=== PATIENT | female | born 1970 | race Caucasian/White ===

== ENCOUNTER 2017-05-21 20:32 | Emergency (ER) | payer OTHER ==
[~2017-05-21] VITALS: Ht 162.6 cm; Wt 95.0 kg
[~2017-05-21 20:32] MED LIST: ATENOLOL (*) 2525 MG PO; asthmanex INH; nasonex; pro air INH
[2017-05-21 20:38] VITALS: BP 161/122; RESP 18; O2SAT 99
--- NOTE | 2017-05-21 21:41 | ED.REPORT ---
HPI-Dyspnea / Wheezing Date of Service May 21, 2017 ED Provider: Jono Orozco MD 46 y/o female with a hx of DM, HTN and asthma presents to the ED complaining of intermittent shortness of breath, onset a month ago. The pt states she brought poppy medina home about a month ago and experienced an allergy reaction. She removed the medina but since then she has been feeling constriction and pressure in her throat, making it difficult for her to breathe through her mouth. She states "during the day and 3-4 times at night, I feel a tickle in my throat and all of a sudden, I stop breathing and I have to take take deep breaths to control it and then I wont be able to breathe again.When laying down , I feel like something is pushing up my throat and closing my airway." Associated sx include right neck swelling that extends up to her right ear and coarse voice. She denies smoking, snoring, wheezing, fever, chest pain and diaphoresis. The pt has not had to use her inhalers in over 3 years but reports she has been prescribed Asthamnex and Pro-air since the current sx began. She had also been prescribed Prednisone for 5 days which did not improve her sx significantly. Nursing Notes Stated Complaint: THROAT CLOSING, SHORT OF BREATH Chief Complaint: ENT & Mouth Nursing Notes Reviewed: Yes Allergies: Coded Allergies: chlorpromazine (Verified Allergy, Severe, 09/18/09) codeine (Verified Allergy, Severe, 04/28/13) morphine (Verified Allergy, Severe, 09/18/09) prochlorperazine (Verified Allergy, Severe, UNKNOWN, 09/18/09) thiethylperazine (Verified Allergy, Severe, UNKNOWN, 09/18/09) Uncoded Allergies: COMPAZINE,THORAZINE,TORCAN,BCP,EES,MS (Allergy, Unknown, 10/27/05) Macrolides (Allergy, Unknown, 10/27/05) PHENOTHIAZINES (Ingr Allergy) (Allergy, Unknown, Y, 10/27/05) Prochlorperazine (Allergy, Unknown, 10/27/05) Scheduled ([asthmanex]) INH PRN ([nasonex]) NA DAILY ([pro air]) INH PRN resque inhaler. Miscellaneous Medications Atenolol-Expunged Drug, Do Not Renew! (Atenolol-Expunged Drug, Do Not Renew!) 25 Mg Tab 25 MG PO General Time Seen by MD: 21:40 Chief Complaint Shortness of breath (intermittent) Hx Obtained From: Patient Arrived By: Walk-in Sudden in Onset?: Yes Onset Occurred: More than a week ago... (1 month) Symptom Duration: Intermittent Severity: Current: No pain currently Severity: Maximum: No pain Recent Healthcare: No recent doctor visit Similar Sx Previous: No Past Medical History Past Medical History Reports: Asthma, Diabetes mellitus, Hypertension Past Surgical History Hysterectomy Knee Hernia Smoking History Never Smoker Social History Other Social History: Good social support, Ambulatory Status Independent Review of Systems Reports: constriction and pressure in the throat, especially on the left side Constitutional: Denies: Fever Respiratory: Reports: Shortness of breath (intermittent), Denies: Wheezing Cardiovascular: Denies: Chest pain Musculoskeletal: Reports: Neck pain (neck swelling) Skin: Denies Diaphoresis Complete sys rev & neg: except as marked. Physical Exam Initial Vital Signs Vital Signs (First) Date Time Temp Pulse Resp B/P Pulse Ox O2 Delivery O2 Flow Rate FiO2 05/21/17 20:38 36.4 81 18 161/122 99 Room Air Initial VS: Reviewed Head / Eyes: Atraumatic, Normocephalic Abdomen / GI: Soft, Non-tender Extremities: Vascular intact, Neuro intact, No swelling, No tenderness Skin: Warm, Dry, No cyanosis Neurologic: Alert, Oriented, Nonfocal General/Constitutional: Awake, Alert, No acute distress, Cooperative Neck: Atraumatic, Supple, Full range of motion, No adenopathy, No masses No thyromegaly Right sided tenderness Phonation normal lies flat wihout dyspnea Respiratory / Chest: Atraumatic, Breath sounds NL, Breath sounds = bilat, No respiratory distress, No rales, No rhonchi, No wheezing Cardiovascular: Heart rate NL, Regular rhythm, Heart sounds NL, No gallop, No murmurs, No rubs ENT: Atraumatic Ulcers with whitish base on the soft pallate. Interpretation & Diagnostics Exam: Neck CT Conclusion: No findings of epiglottis or retropharyngeal abscess identified. No peritonsillar abscess. Soft tissue fullness in the region of the left vallecula , possibly due to retained secretions but direct visualization of this area may be of benefit to exclude a soft tissue mass. Signed by Dr. Miles Meléndez 05/22/17 12:44 Lab Results Interpretation Result Diagram: 05/21/17 2319 05/21/17 2319 Test 05/21/17 23:19 White Blood Count 12.9th/mm3 (3.8-10.1) Red Blood Count 4.69mil/mm3 (3.90-5.20) Hemoglobin 14.1g/dL (12.0-15.6) Hematocrit 41.3% (35.0-46.0) Mean Corpuscular Volume 88.1fL (81-100) Mean Corpuscular Hemoglobin 30.1pg (27.0-35.0) Mean Corpuscular Hemoglobin Concent 34.1% (32.0-37.0) Red Cell Distribution Width 13.1% (12.3-15.4) Platelet Count 359bil/L (150-400) Neutrophils (%) (Auto) 39.7% (40-74) Lymphocytes (%) (Auto) 54.1% (14-46) Monocytes (%) (Auto) 4.2% (4-12) Eosinophils (%) (Auto) 1.2% (0-5) Basophils (%) (Auto) 0.3% (0-3) Sodium Level 139mEq/L (134-144) Potassium Level 3.9mEq/L (3.5-5.2) Chloride Level 98mEq/L (97-108) Carbon Dioxide Level 24mmol/L (18-29) Blood Urea Nitrogen 12mg/dL (6-24) Creatinine 0.65mg/dL (0.57-1.00) Estimat Glomerular Filtration Rate 139mL/min (>59) Glucose Level 153mg/dL (60-99) Calcium Level 10.1mg/dL (8.5-10.1) Total Bilirubin 0.2mg/dL (0.0-1.2) Aspartate Amino Transf (AST/SGOT) 32U/L (0-50) Alanine Aminotransferase (ALT/SGPT) 79U/L (0-32) Alkaline Phosphatase 64U/L (25-150) Total Protein 7.9g/dL (6.4-8.4) Albumin 4.6g/dL (3.4-5.0) Thyroid Stimulating Hormone (TSH) 3.490uIU/mL (0.450-4.500) Hold Desai Top Tube Received (Received) Re-Eval/Medical Decision Med Decision/Clinical Course 46 year old female with intermittent sense of airway obstruction and persistent R sided neck pain/tenderness. Airway appears intact. No airway threat on CT imaging. Noted to be hypertensive on arrival, this resloves on re-check prior to discharge. Will be seen later today by ENT. Re-Evaluation/Progress : Time of Eval: 00:52 Re-Evaluation/Progress Note: Rechecked pt. Discussed lab results, imaging results, diagnosis and plan to discharge. Pt understands and agrees with the plan. F/U instructions and RTER warning given. All questions addressed. Consultation : Referral / Consult Name: Luis Burns MD Consulted With: ENT Call Returned at: 00:54 Senior Pensions Administrator: Will see in office, Agrees with eval, Agrees with plan Counseled Regarding: Diagnosis, Lab results, Need for follow-up, When/why to return to ED Discharge & Departure Impression: Primary Impression: Choking in adult Disposition: Home Discharge Condition All VS Reviewed: Yes Condition: Stable Additional Instructions: Emergency department evaluation today included review, examination, labs and CT of the neck. There does not appear to be any immediately concerning condition present. Case was discussed with Dr.Gary Burns, an ear nose and throat doctor. He would like to see later today. Call the office at 8 AM. Thanks for trusting us with your care tonight Referrals: Luis Burns MD Scribe Attestation Portions of this note were transcribed by Sha El. I, , personally performed the history, physical exam and medical decision- making;I reviewed and confirmed the accuracy of the information in the transcribed note. Signed by Shreya Torres. 05/22/17 01:11 copies to: Annie Baldwin MD; Luis Burns MD, Donald L MD May 21, 2017 21:41 Sha El May 21, 2017 23:15
[2017-05-21 22:57] VITALS: BP 143/84; PULSE 82; RESP 18; O2SAT 99
[2017-05-21] MEDS ORDERED: 0.9% Sodium Chloride 1,000 ML IV ONE (23:10)
[2017-05-21 23:27] LABS: BASOPHILS % (AUTO) 0.3 % (0-3); EOSINOPHILS % (AUTO) 1.2 % (0-5); MONOCYTES % (AUTO) 4.2 % (4-12); Mean Corpuscular Hemoglobin 30.1 pg (27.0-35.0); Mean Corpuscular Volume 88.1 fL (81-100); NEUTROPHILS % (AUTO) 39.7 % (40-74); Platelet Count 359 bil/L (150-400)
[2017-05-22 01:22] VITALS: BP 127/81; PULSE 71; RESP 14; O2SAT 98
--- NOTE | 2017-05-22 08:16 | DRSVH ---
PROCEDURE: CT NECK SOFT TISSUES WITH CONTRAST ([id number]) INDICATIONS: neck pain, difficulty breathing TECHNIQUE: After the administration of intravenous contrast, 3.0 mm axial sections acquired from the sella to th e aortic arch. Additional oblique axial 3.0 mm sections acquired through the pharynx. 3 mm thick co lizeth reformats were generated. For radiation dose reduction, the following was used: automated exp osure control. COMPARISON: [facility], CT, NECK SOFT TIS. W/CONTRAST, 04/28/2013, 15:37. FINDINGS: Image quality: Excellent. Lymph nodes: No enlarged lymph nodes seen throughout the neck. Vessels: Visualized vasculature appears patent. Neck spaces: The oropharynx, nasopharynx, and pharynx demonstrate no mucosal lesions. The vocal cor ds, false vocal cords, pyriform sinuses, epiglottis, and tongue base all appear normal. There is a ma ss or retained secretions in the left vallecula (se 2 im 31) measuring 2.1 x 1.4 x 1.8 CM Extramucos al spaces appear unremarkable. Prominent but not pathologically enlarged cervical lymph nodes bilate rally. Glands: The parotid and submandibular glands appear normal. Thyroid gland grossly normal.. Miscellaneous: Visualized brain and orbits appear normal. Lung apices appear clear. Superficial so ft tissues appear normal. Bones: No suspicious bony lesions. Visualized sinuses and mastoids appear unremarkable. IMPRESSION: 1. No drainable fluid collections or abscess. 2. Soft tissue mass in the left vallecula. Although this finding is similar to the 2013 study recomme nd direct visualization for further evaluation. 3. There are no discrepancies with the preliminary report. Dictated by: Jose Roberto Almonte M.D. on 05/22/2017 at 8:07 Approved by: Jose Roberto Almonte M.D. on 05/22/2017 at 8:14
== END 2017-05-22 01:22 | disposition home or self-care (01) ==
LOC: SED 20:32
DX: R09.89 Other specified symptoms and signs involving the circulatory and respiratory systems (principal); R22.1 Localized swelling, mass and lump, neck; Z88.5 Allergy status to narcotic agent; Z88.8 Allergy status to other drugs, medicaments and biological substances; M54.2 Cervicalgia; J45.909 Unspecified asthma, uncomplicated; I10 Essential (primary) hypertension; E11.9 Type 2 diabetes mellitus without complications
CPT/HCPCS: 36415; 70491; 80053; 82948; 84443; 85025; 96360; 99284; J7030; Q9967

== ENCOUNTER 2017-06-24 06:40 | Inpatient (IN) | payer OTHER ==
[~2017-06-24] VITALS: Ht 162.6 cm; Wt 90.9 kg
[2017-06-24] VITALS (9 sets, daily range): BP systolic 110–181; BP diastolic 65–136; PULSE 74–147; RESP 15–21; O2SAT 96–100
--- NOTE | 2017-06-24 06:39 | ED.REPORT ---
HPI-GI Bleed Date of Service Jun 24, 2017 ED Provider: Ted Perry MD A 46 year old female with a history of hypertension and diabetes is brought to the ED via EMS due to hemoptysis. The pt had a tongue base I partial glossectomy on 06/15/2017 at [facility] with a 3 cm x 3 cm area removed ( benign). She woke this morning to blood in her airway and immediately began coughing and vomiting blood. Per medics, she continued to cough and vomit blood consistently en route. No other symptoms are reported at this time. The pt's states that she ate toast last night but has not experienced any other complications. Nursing Notes Stated Complaint: VOMITING BLOOD Nursing Notes Reviewed: Yes Allergies: Coded Allergies: chlorpromazine (Verified Allergy, Severe, 06/24/17) codeine (Verified Allergy, Severe, 06/24/17) morphine (Verified Allergy, Severe, 06/24/17) prochlorperazine (Verified Allergy, Severe, 06/24/17) thiethylperazine (Verified Allergy, Severe, 06/24/17) Phenothiazines (Verified Allergy, Unknown, 06/24/17) Uncoded Allergies: COMPAZINE,THORAZINE,TORCAN,BCP,EES,MS (Allergy, Unknown, 10/27/05) Macrolides (Allergy, Unknown, 10/27/05) Scheduled ([asthmanex]) INH PRN ([nasonex]) NA DAILY ([pro air]) INH PRN resque inhaler. Miscellaneous Medications Atenolol-Expunged Drug, Do Not Renew! (Atenolol-Expunged Drug, Do Not Renew!) 25 Mg Tab 25 MG PO General Time Seen by Provider: 06:41 Chief Complaint Chief Complaint: Other (hemoptysis) Hx Obtained From: Patient, EMS Arrived By: Ambulance Onset Occurred: 16 - 30 minutes ago Symptom Duration: Since onset Recent Healthcare: Recent doctor visit, Recent hospitalization Similar Sx Previous: No Past Medical History Past Medical History Reports: Asthma, Diabetes mellitus, Hypertension Past Surgical History Hysterectomy Knee Hernia tongue base I partial glossectomy, 3 cm x 3 cm area removed (benign) 06/15/2017 Smoking History Never Smoker Social History Other Social History: Good social support, Ambulatory Status Independent Review of Systems Respiratory: Reports: Hemoptysis, Denies: Shortness of breath Cardiovascular: Denies: Chest pain GI: Reports: Hematemesis, Denies: Abdominal pain Skin: Denies Rash Complete sys rev & neg: except as marked. Physical Exam Initial Vital Signs Vital Signs (First) Date Time Temp Pulse Resp B/P Pulse Ox O2 Delivery O2 Flow Rate FiO2 06/24/17 06:40 36.4 152 18 158/112 97 Room Air Initial VS: Reviewed General/Constitutional: Awake, Alert sitting up and spitting blood regularly able to speak without hoarseness, but unable to converse normally due to frequency of coughing blood Respiratory / Chest: Breath sounds NL, Breath sounds = bilat no overt respiratory distress Cardiovascular: Regular rhythm, Heart sounds NL Heart Rate / Rhythm: Positive: Tachycardia Abdomen: Atraumatic, Soft, Non-tender Head / Eyes: Normocephalic, PERRL, EOMI ENT: Airway patent, Mucous membranes moist Skin Skin: Atraumatic, Color NL, No rash, Warm, Dry Neurologic: Oriented X3, Speech NL, No motor deficits, No sensory deficits Neck: Supple, Full range of motion Back: Atraumatic, Full range of motion Upper Extremity / MS: Atraumatic, Full range of motion Lower Extremity / Pelvis / MS: Atraumatic, Full range of motion Psychiatric: Affect NL, Mood NL Interpretation & Diagnostics Lab Results Interpretation Result Diagram: 06/24/17 0728 06/24/17 0645 Test 06/24/17 06:45 06/24/17 07:28 White Blood Count 10.1th/mm3 (3.8-10.1) Red Blood Count 4.51mil/mm3 (3.90-5.20) Mean Corpuscular Volume 88.2fL (81-100) Mean Corpuscular Hemoglobin 29.7pg (27.0-35.0) Mean Corpuscular Hemoglobin Concent 33.7% (32.0-37.0) Red Cell Distribution Width 13.6% (12.3-15.4) Platelet Count 398bil/L (150-400) Neutrophils (%) (Auto) 39.3% (40-74) Lymphocytes (%) (Auto) 51.3% (14-46) Monocytes (%) (Auto) 7.1% (4-12) Eosinophils (%) (Auto) 1.5% (0-5) Basophils (%) (Auto) 0.5% (0-3) Prothrombin Time 9.4sec (8.1-12.5) Prothromb Time International Ratio 0.88ratio Sodium Level 142mEq/L (134-144) Potassium Level 3.7mEq/L (3.5-5.2) Chloride Level 100mEq/L (97-108) Carbon Dioxide Level 18mmol/L (18-29) Blood Urea Nitrogen 7mg/dL (6-24) Creatinine 0.69mg/dL (0.57-1.00) Estimat Glomerular Filtration Rate 130mL/min (>59) Glucose Level 192mg/dL (60-99) Calcium Level 10.5mg/dL (8.5-10.1) Magnesium Level 1.7mg/dL (1.6-2.6) Total Bilirubin 0.3mg/dL (0.0-1.2) Aspartate Amino Transf (AST/SGOT) 43U/L (0-50) Alanine Aminotransferase (ALT/SGPT) 91U/L (0-32) Alkaline Phosphatase 92U/L (25-150) Troponin T < 0.010ug/L (0.0-0.011) Total Protein 7.9g/dL (6.4-8.4) Albumin 4.4g/dL (3.4-5.0) Triglycerides Level 267mg/dL (0-149) Hemoglobin 11.3g/dL (12.0-15.6) Hematocrit 33.3% (35.0-46.0) Lab Results Interpretation: Hematocrit #1 normal Hematocrit #2 decreasing CMP normal ECG Interpretation ECG Interpretation: sinus tachycardia with a rate of 154, wide complex rhythm LBBB no previous for comparison Time: 06:52 Interpreted by: ED physician Re-Eval/Medical Decision Med Decision/Clinical Course This is a 46-year-old female who started coughing up blood. Initially the report was a possible GI bleed, so that template was used-but it turns out the patient just had a biopsy of a lingular tonsillar mass done at [facility] a few days ago. She was due to have a follow-up visit today for results of the biopsy, when she started coughing/spitting up blood the back of the mouth. This steadily worsened. And EMS was called. She was actively bleeding, was able to sit up, converse without hoarseness, and although extremely anxious and tachycardic. On arrival the patient is tachycardic and is repeatedly spitting up blood. However she is still protecting her airway in the upright position. She is not short of breath. She is not hypotensive. She reports that the biopsy and removal tissue was done at the lingual tonsillar area, I cannot actually visualize on inspection the actual source of bleeding it is posterior. However again she has no hoarseness. She has no stridor. IVs were placed. Given the ongoing bleeding, and possible need for transfusion she was typed and crossed, and transient panic acid was initiated. Dictated records [facility] and talk with the surgeon there, who indicates that the pathology was negative for malignancy. Additionally, ENT was consulted as the patient arrived given the need for possible or management. Given the persistent bleeding, ENT was consulted and Luis Ames came and has taken the patient to the OR for management. Her EKG suggests a underlying left bundle branch block, but there is no prior EKG available in the EMR here, and I contacted [facility] indicate they have no prior EKG as well. The patient is no chest pain shortness breath over cardiac symptoms-the presentation is entirely consistent with ongoing postsurgical hemorrhage. Patient is continuing to have slow steady amounts of blood that she spits up, and is being taken to the or for further management. Initial hematocrit is normal. Serial hematocrits have been obtained and blood is available and may be required. Source of Hx: Old records Re-Evaluation/Progress #1: Time of Eval: 07:09 Patient Status: Condition improved Re-Evaluation/Progress Note: Pt rechecked, who is stable. The diagnosis and plan for admission are discussed. The pt understands and agrees with the plan. All questions are addressed at this time. Re-Evaluation/Progress #2: Time of Eval: 07:30 Re-Evaluation/Progress Note: Pt rechecked and plan for surgery is further discussed. Consultation #1: Referral / Consult Name: Luis Ames MD Consulted With: ENT Call Returned at: 06:51 Speech Pathology Teacher: Agrees with eval, Agrees with plan, Accepts admit Note: Consulted with Dr. Ames, ENT, regarding pt's case. Dr. Ames agrees with the evaluation and plan. He agrees to admit the pt for surgery. Consultation #2: Call Returned at: 07:01 Note: Spoke with [facility] regarding pt's case. Pt's history is reviewed. Consultation #3: Referral / Consult Name: Luis Ames MD Consulted With: ENT Call Returned at: 07:12 Speech Pathology Teacher: Agrees with eval, Agrees with plan Note: Spoke with Dr. Ames to update him on pt history and plan. Counseled Regarding: Diagnosis, Lab results, Need for admission Discharge & Departure Impression: Primary Impression: Post-tonsillectomy hemorrhage Additional Impression: LBBB (left bundle branch block) Disposition: ADMITTED TO HOSPITAL Discharge Condition All VS Reviewed: Yes Condition: Stable Referrals: Annie Baldwin MD (PCP) Crit Care Except Billable Proc Time Spent: 30-74 minutes Services Performed: Patient management by me, Time spent at bedside, Reviewing test results, Reviewing imaging, Discussing patient care, Documentation in record, Time with fam/surrogate Scribe Attestation Portions of this note were transcribed by Alexy Yu. I, Dr. Perry personally performed the history, physical exam and medical decision-making; I reviewed and confirmed the accuracy of the information in the transcribed note. copies to: Annie Baldwin MD, Matthew F MD Jun 24, 2017 06:39 ALEXY YU Jun 24, 2017 06:49
[~2017-06-24 06:40] MED LIST changes: +Pantoprazole 4 mg/mL 10 mL Inj IVPUSH ONE; +Pantoprazole Inj 80 MG, Pharmacy To Mix 1 EA in 0.9% Sodium Chloride 80 ML IV ONE
[2017-06-24] MEDS ORDERED: Tranexamic Acid Inj 1,000 MG in 0.9% Sodium Chloride 100 ML IV ONE (06:50)
[2017-06-24] MEDS ORDERED: TRANEXAMIC ACID IV ONE (06:50)
[2017-06-24] MEDS ORDERED: SODIUM CHLORIDE 0.9% IV ONE (06:50)
[2017-06-24 07:01] LABS: BASOPHILS % (AUTO) 0.5 % (0-3); EOSINOPHILS % (AUTO) 1.5 % (0-5); MONOCYTES % (AUTO) 7.1 % (4-12); Mean Corpuscular Hemoglobin 29.7 pg (27.0-35.0); Mean Corpuscular Volume 88.2 fL (81-100); NEUTROPHILS % (AUTO) 39.3 % (40-74); Platelet Count 398 bil/L (150-400)
[2017-06-24 07:32] LABS: INR 0.88 ratio
[2017-06-24] MEDS ORDERED: Lactated Ringer's 1,000 ML IV ONE (08:16)
[2017-06-24 08:43] LABS: TROPONIN T < 0.010 ug/L (0.0-0.011)
[2017-06-24] MEDS ORDERED: Insulin Human REGular Inj 100 UNIT in 0.9% Sodium Chloride-Pha MIX 100 ML IV SCH (08:52)
[2017-06-24] MEDS ORDERED: Lactated Ringer's 1,000 ML IV SCH ×2 (08:52→09:36)
[2017-06-24] MEDS: Propofol Inj 1,000,000 MCG in IV Premix 1 EACH IV SCH ×2 (08:52→12:46)
[2017-06-24] MEDS ORDERED: fentaNYL-PF 50 mCg/mL 2 mL Inj IVPUSH PRN (08:55)
[2017-06-24] MEDS ORDERED: Senna-Docusate 8.6-50 mg Tablet PO PRN (08:55)
[2017-06-24] MEDS ORDERED: Ondansetron 2 mg/mL 2 mL Inj IVPUSH PRN ×2 (08:55→09:40)
[2017-06-24] MEDS ORDERED: Alum-Mag Hydrox-Simeth 30 mL Suspension PO PRN (08:55)
[2017-06-24] MEDS ORDERED: Polyethylene Glycol (PEG) 17 Gm Powder PO PRN (08:55)
[2017-06-24] MEDS ORDERED: Propofol 10,000 mCg/mL 100 mL Inj ONE (09:25)
[2017-06-24] MEDS ORDERED: Lactated Ringer's 500 ML IV PRN (09:36)
[2017-06-24] MEDS ORDERED: Phenylephrine 10,000 mCg/mL Inj IVPUSH PRN (09:40)
[2017-06-24] MEDS ORDERED: EPHEDrine Sulfate 50 mg/mL Inj IVPUSH PRN (09:40)
[2017-06-24] MEDS ORDERED: Atropine 0.4 mg/mL Inj IVPUSH PRN (09:40)
--- NOTE | 2017-06-24 09:40 | PCM.HPANE ---
Patient Data Surgeon Admitting Provider: Attending Provider:Luis Ames MD Primary Care Physician:Annie Baldwin MD Other Provider:Cari Lagunaingham Anesthesia Reason for Visit Vomiting Blood Ht/WT & BMI Height (Feet): 5 Height (Inches): 4 Weight (Kilograms): 90.91 Body Mass Index Allergies Coded Allergies: chlorpromazine (Verified Allergy, Severe, 06/24/17) codeine (Verified Allergy, Severe, 06/24/17) morphine (Verified Allergy, Severe, 06/24/17) prochlorperazine (Verified Allergy, Severe, 06/24/17) thiethylperazine (Verified Allergy, Severe, 06/24/17) Phenothiazines (Verified Allergy, Unknown, 06/24/17) Uncoded Allergies: COMPAZINE,THORAZINE,TORCAN,BCP,EES,MS (Allergy, Unknown, 10/27/05) Macrolides (Allergy, Unknown, 10/27/05) Past Anesthesia History Anesthesia History: Denies:: Abnormal Airway, Anesthesia Reactions, Difficult Intubation, Fam Anesthesia Reaction, Fam Malignant Hypertherm, Malignant Hyperthermia Diabetes History Hx Diabetes?: Yes (Bedside glucose 161 today) Medications Reported Medications Atenolol-Expunged Drug, Do Not Renew! 25 Mg Tab25 Mg PO 04/28/13 [pro air] No Conflict Check INH PRN Ref 0 resque inhaler. 01/24/09 [nasonex] No Conflict Check NA DAILY Ref 0 01/24/09 [asthmanex] No Conflict Check INH PRN Ref 0 01/24/09 History History of ENT Problems?: Yes (s/p ENT surgery) HEENT History: Denies:: Abnormal Airway Cataracts Difficult Intubation Dysphagia Glaucoma Hearing Problem Sinus Problem TMJ Denture Type: None Teeth Condition: Within Normal Limits Hx of Heart Problems?: No Cardiovascular History: Positive for:: Hypertension Denies:: AICD Abdominal Aortic Aneurism Atrial Fibrillation Cardiac Surgery Chest Pain Congestive Heart Failure Coronary Artery Disease Edema Heart Murmur Irregular Heartbeat Pacemaker Peripheral Vascular Rheumatic Fever Thrombophlebitis Valvular Heart Disease Hx of Respiratory Problem?: No Respiratory History: Positive for:: Asthma Denies:: COPD Chest Surgery Cough Dyspnea Emphysema Hemoptysis Oxygen Administration Pneumonia Pulmonary Embolism Tuberculosis Use of C-PAP Machine Use of Inhalers / NEBS Hx Neurologic Problems?: No Neurological History: Denies:: Alzheimer's Disease CVA Dementia Dizziness Headaches Multiple Sclerosis Parkinson's Disease Peripheral Neuropathy Seizures TIA Hx of GI Problems?: No Gastrointestinal History: Denies:: Cirrhosis Diverticulitis Gall Bladder Disease Gastroesphageal Reflux Gastrointestinal Bleeding Heartburn Hepatitis Hiatal Hernia Liver Disease Rectal Bleeding Hx of Problems?: No Genitourinary History: Denies:: HX of Hemodialysis Kidney Stones Urinary Tract Infection HX of Peritoneal Dialysis: No Female Hx: Denies:: Currently Endometriosis Pelvic Inflammatory Problems with Breasts? Skin History: Denies:: History Skin Disorders? Pressure Ulcers Hx Musculoskeletal Problems?: No Musculoskeletal History: Denies:: Back Injury Degenerative Joint Fibromyalgia Joint Replacement Musculoskeletal Trauma Myasthenia Gravis Osteoarthritis Rheumatoid Arthritis Systemic Lupus Hx of Psycho/Social Problems?: No Psycho Social History: Denies:: Anxiety Bipolar Disorder Hx Depression Suicide Attempt Hx Surgeries?: Yes (HYSTERECTOMY, KNEE, HERNIA) Other History: Denies:: Cancer Endocrine Disease Hospitalization Thyroid Disease History Blood Transfusions: Positive for:: Accept Blood Products? Denies:: Blood Transfuse Reaction Blood Transfusions Hx Diabetes: Yes (Bedside glucose 161 today) Hx Alcohol Use: NoHx Substance Use: No Smoking Status: Never Smoker Have You Smoked inLast 12 mo: No Stop/Bang Risk Assessment Category Category 1A: Patient has history of documented sleep apnea, and HAS NOT received any narcotic, sedative or anesthesia administration during this stay. Category 1B: Patient has history of documented sleep apnea, and HAS received any narcotic , sedative or anesthesia administration during this stay Category 2: Patient has SUSPECTED Obstructive Sleep Apnea, and HAS received any narcotic , sedative or anesthesia administration during this stay. Category 3: Patient has SUSPECTED Obstructive Sleep Apnea and HAS NOT received narcotic, sedative or anesthesia administration during this stay. Category 4: Outpatient in Procedural Areas with known sleep apnea or who screen positive for High Risk via the STOP/BANG questionnaire. Exam Exam Vital Signs Vital Signs Date Time Temp Pulse Resp B/P Pulse Ox O2 Delivery O2 Flow Rate FiO2 06/24/17 07:18 136 21 155/117 97 Room Air 06/24/17 07:00 147 21 181/136 97 Room Air 06/24/17 06:40 36.4 152 18 158/112 97 Room Air General Appearance: Alert, Oriented X3, Cooperative, Severe Distress ( significant post tonsillectomy hemorrhage) HEENT/AIRWAY: MP 2, Neck Movement (FROM), Mouth Opening (3 FBMO) Lungs: Clear to Auscultation, Normal Air Movement Heart: Regular Rate/Rhythm, No Murmurs/Rubs/Gallops, Other (possible ST elevation on ED 3 lead merchandising consultant, will address after bleeding is controlled) Meds/Labs/Diagnostics Admission Meds Current Medications Pantoprazole 80 mg 80 mg STAT ONCE IVPUSH Last administered on 06/24/17 06:45 ; Start 06/24/17 at 06:40; Stop 06/24/17 at 06:41; Status DC Pantoprazole 80 mg/Miscellaneous 1 ea/Sodium Chloride 100 ml @ 10 mls/hr ONCE ONCE IV Last administered on 06/24/17 07:18; Start 06/24/17 at 06:40; Stop at 16:39 Tranexamic Acid/ Sodium Chloride (Cyklokapron Inj/ Normal Saline) 110 ml @ 600 mls/hr ONCE ONCE IV Last administered on 06/24/17 06:58; Start 06/24/17 at 06: 50; Stop 06/24/17 at 07:00; Status DC Labs Test 06/24/17 06:45 06/24/17 07:28 White Blood Count 10.1th/mm3 (3.8-10.1) Red Blood Count 4.51mil/mm3 (3.90-5.20) Mean Corpuscular Volume 88.2fL (81-100) Mean Corpuscular Hemoglobin 29.7pg (27.0-35.0) Mean Corpuscular Hemoglobin Concent 33.7% (32.0-37.0) Red Cell Distribution Width 13.6% (12.3-15.4) Platelet Count 398bil/L (150-400) Neutrophils (%) (Auto) 39.3% (40-74) Lymphocytes (%) (Auto) 51.3% (14-46) Monocytes (%) (Auto) 7.1% (4-12) Eosinophils (%) (Auto) 1.5% (0-5) Basophils (%) (Auto) 0.5% (0-3) Plan Impression Patient chart reviewed, patient interviewed and anesthestic plan with risks, benefits, and alternatives discussed, and informed consent obtained. NPO per Anesth. Guidelines: Yes ASA Physical Status: ASA4 Plus Emergency Anesthetic Plan: GA Bene/Risks/Altern/Consents: Yes HP Complete Prior to Induction: Yes Other Discussed risk of possible postoperative intubation secondary to severe bleed, as well as aspiration of blood. Leodan Wills MD Jun 24, 2017 07:51
--- NOTE | 2017-06-24 09:41 | PCM.ANEP1 ---
Post Anesthesia PACU Phase 1 Assessment Vital Signs Vital Signs Date Time Temp Pulse Resp B/P Pulse Ox O2 Delivery O2 Flow Rate FiO2 06/24/17 07:40 95 15 110/66 97 Room Air 06/24/17 07:30 135 16 152/92 96 Room Air 06/24/17 07:18 136 21 155/117 97 Room Air 06/24/17 07:00 147 21 181/136 97 Room Air 06/24/17 06:40 36.4 152 18 158/112 97 Room Air Anesthetic Administered: GA Level of Alertness: Drowsy, not talking (sedated on a ventilator) MEDEIROS's with Equal Strength: Yes Pain: No Nausea or Vomiting: No CV Function & Hydration Stable: Yes (addressed possible ST elevation with ICU physician Dr. David Ellis and ordered 12 Lead EKG. He will follow up.) Airway Device: Endotrachial Tube Lungs: Clear to Auscultation, Normal Air Movement Dermatome Level: Full Sensation (difficult to assess as intubated and sedated) PACU Phase 2 Assessment Complications: Yes (will remain intubated for transfer to [facility]) Follow up Care: Yes (ICU) Patient Instructions Provided: N/A Leodan Wills MD Jun 24, 2017 09:41
[2017-06-24] MEDS ORDERED: fentaNYL 2,500 mCg/250 mL IV Premix IV SCH (09:55)
--- NOTE | 2017-06-24 11:33 | ABG ---
DateTimeAnalyzed 11:21:00 -_ pH ____7.454 - 7.350 7.450 pCO2 ___25.4__ -mmHg 35.0 45.0 pO2 187 -mmHg 69.0 116 HCO3- ___17.6__ -mmol/L 22.0 26.0 ABE ___-4.8__ -mmol/L -2.0 2.0 tHb ___10.8__ -g/dL O2Hb ___97.7__ -% COHb ____0.8__ -% MetHb ____0.9__ -% sO2 ___99.4__ -% FIO2 ___50.0__ -% PRVC 20 - PEEP ____5.0__ -cmH2O Vt __440.0__ -L Drawn By gj - Date/Time Notified____ 11:33:00 -_ Spontaneous_RR ___20.0__ -b/min Oxygen Device 1 VENTILATOR - Notified By gj - Notified Whom ___DR. GARRIDO - B 759 -mmHg tO2 ___15.3__ -Vol% Clem test N/A -
--- NOTE | 2017-06-24 11:46 | PCM.DC.MED ---
Discharge Summary Date of Service Jun 24, 2017 Dates of Hospitalization Date of Hospital Admission Jun 24, 2017 at 08:56 Date of Discharge: Jun 24, 2017 Providers: Admitting Physician: Luis Ames MD Primary Care Physician: Annie Baldwin MD Attending Physician: Luis Ames MD Diagnosis at Time of Discharge Diagnosis at Time of Discharge Acute blood loss anemia Postoperative hypoglossal hemorrhage Hypertension Diabetes mellitus type II Consultations Luis Ames, ENT Procedures XRay, CTs & MRIs Chest x-ray NAD Brief History 46-year-old woman with two-month history of dyspnea found to have tonsillar mass biopsied then resected at [facility] approximately 3 days prior to admission in the care of Dr. Keenan Palacios. She experienced new onset left-sided neck pain 1 day prior to admission. On the morning admission she awakened early in the morning with profuse hemorrhage. She was taken to the operating room at [facility] urgently by Dr. Luis Ames. Details per operative note. She received 2 units RBC transfusion, as well as substantial crystalloid. Patient then transferred to intensive care unit, intubated and sedated with propofol and fentanyl. Post intubation chest x-ray with good tube placement. Blood pressure systolic in 190s now stable approximately 150-160. Posttransfusion Hemoglobin pending at time of transfer Exam Vital Signs (Last) Date Time Temp Pulse Resp B/P Pulse Ox O2 Delivery O2 Flow Rate FiO2 06/24/17 09:58 86 125/67 100 50 06/24/17 09:20 Ventilator 06/24/17 09:15 36.6 20 Exam General: Obese woman intubated sedated with oral gauze pack HEENT: sclerae anicteric Chest: clear to auscultation Cardiac: S1S2, regular, no murmur Abdomen: BS normal, not rigid Extremities: No pitting edema Neuro: Minimally alert, cranial nerves symmetric, her movements are nonfocal Test 06/24/17 06:45 06/24/17 07:28 White Blood Count 10.1th/mm3 (3.8-10.1) Red Blood Count 4.51mil/mm3 (3.90-5.20) Mean Corpuscular Volume 88.2fL (81-100) Mean Corpuscular Hemoglobin 29.7pg (27.0-35.0) Mean Corpuscular Hemoglobin Concent 33.7% (32.0-37.0) Red Cell Distribution Width 13.6% (12.3-15.4) Platelet Count 398bil/L (150-400) Neutrophils (%) (Auto) 39.3% (40-74) Lymphocytes (%) (Auto) 51.3% (14-46) Monocytes (%) (Auto) 7.1% (4-12) Eosinophils (%) (Auto) 1.5% (0-5) Basophils (%) (Auto) 0.5% (0-3) Prothrombin Time 9.4sec (8.1-12.5) Prothromb Time International Ratio 0.88ratio Sodium Level 142mEq/L (134-144) Potassium Level 3.7mEq/L (3.5-5.2) Chloride Level 100mEq/L (97-108) Carbon Dioxide Level 18mmol/L (18-29) Blood Urea Nitrogen 7mg/dL (6-24) Creatinine 0.69mg/dL (0.57-1.00) Estimat Glomerular Filtration Rate 130mL/min (>59) Glucose Level 192mg/dL (60-99) Calcium Level 10.5mg/dL (8.5-10.1) Magnesium Level 1.7mg/dL (1.6-2.6) Total Bilirubin 0.3mg/dL (0.0-1.2) Aspartate Amino Transf (AST/SGOT) 43U/L (0-50) Alanine Aminotransferase (ALT/SGPT) 91U/L (0-32) Alkaline Phosphatase 92U/L (25-150) Troponin T < 0.010ug/L (0.0-0.011) Total Protein 7.9g/dL (6.4-8.4) Albumin 4.4g/dL (3.4-5.0) Triglycerides Level 267mg/dL (0-149) Hemoglobin 11.3g/dL (12.0-15.6) Hematocrit 33.3% (35.0-46.0) Discharge Medications Discharge Medications ([asthmanex]) INH PRN (Reported) ([nasonex]) NA DAILY (Reported) ([pro air]) INH PRN (Reported) resque inhaler. Miscellaneous Medications Atenolol-Expunged Drug, Do Not Renew! (Atenolol-Expunged Drug, Do Not Renew!) 25 Mg Tab 25 MG PO (Reported) Followup Plan Disposition: Transfer center at [facility] was contacted and indicated that Dr. Connell communication was completed and they were ready to accept the patient. ACLS transfer to [facility], Dr. Martín Leavitt attending hogshead roller. Time spent 45 minutes Roe Ellis MD Jun 24, 2017 11:46
--- NOTE | 2017-06-24 12:23 | DRSVH ---
PROCEDURE: X-RAY CHEST ONE VIEW, PORTABLE ([id number]) INDICATIONS: tube placement TECHNIQUE: One view of the chest was acquired. COMPARISON: None. FINDINGS: Surgical changes and devices: ETT tip projected 2.2 cm of the kenny. Lungs and pleura: No pleural effusions or pneumothorax. Lungs are clear, aside from mild bibasilar presumed atelectasis given the low lung volumes. Mediastinum: Mediastinal contours appear normal. Heart size is normal. Bones and chest wall: No suspicious bony lesions. Overlying soft tissues appear unremarkable. IMPRESSION: Placement of ETT otherwise bibasilar opacities present likely atelectasis. Correlate cli nically. Dictated by: David JARAMILLO Interpreted: Eleazar Thorpe MD on 06/24/2017 at 10:27 Approved by: Keenan Thorpe M.D. on 06/24/2017 at 12:21
[2017-06-24] MEDS ORDERED: Chlorhexidine 0.12% 15 mL Oral Solution MT SCH (12:30)
--- NOTE | 2017-06-24 13:29 | OP ---
[address] [address] OPERATIVE REPORT PATIENT: TITUS DIEHL : 1970 MR#: [id number] ADMIT: 06/24/2017 JOB ID: [id number] DATE OF SURGERY: 06/24/2017 SURGEON: Luis Ames MD PREOPERATIVE DIAGNOSIS(ES): POSTOPERATIVE DIAGNOSIS(ES): INDICATION FOR PROCEDURE: The patient is a 46-year-old female who underwent a partial posterior tongue resection approximately seven days ago at [facility]. She presents to the emergency department this morning, coughing and spitting up blood. When I saw her in the emergency department she was breathing well, able to express herself normally, and other than intermittently coughing and spitting up blood was not experiencing significant pain complaining of other problems. Cursory exam showed bright red blood coming from her oropharynx. The decision was made to bring her to the operating room for intubation and exploration. DESCRIPTION OF PROCEDURE: After discussing the case with she and her , she was brought to the operating room. General anesthetic was administered by means of an oral endotracheal tube. The tongue was grasped and pulled anteriorly. The oropharynx was filled with bright red blood. This was suctioned. The bleeding was profusely coming from the left base of tongue. Utilizing suction cautery, as it was difficult to reach that area with suture, I was able to explore the base of tongue and gain control with suction. The patient tolerated the procedure well. The decision was made to pack her pharynx with gauze. Discussion ensued to possibly transfer her to [facility] where they can continue to follow her and she was accepted in transfer.
[2017-06-24] MEDS ORDERED: Rocuronium 10 mg/mL 5 mL Inj ONE (13:39)
[2017-06-24] MEDS ORDERED: Dexamethasone 4 mg/mL Inj ONE (13:39)
[2017-06-24] MEDS ORDERED: fentaNYL-PF 50 mCg/mL 2 mL Inj ONE (13:39)
[2017-06-24] MEDS ORDERED: Propofol 10,000 mCg/mL 20 mL Inj ONE (13:39)
--- NOTE | 2017-06-24 14:48 | NUR ---
spiritual care: iam Visited with pt who is known to this asset administrator. Offered support to pt and family. Prayed with them before pt was transferred. Offered a blessing.
--- NOTE | 2017-06-24 14:48 | NUR ---
Admit to CCU/transfer out Patient arrived from OR after 0900 today. Patient was intubated and non -responding to stimulation. SHOT POLISHER and attending Anesthesiologist were at the bedside at the time. Patient received a paralytic agent prior to arriving from OR per Anesthesiologist statement. Oral packing was visible but no bleeding was noted. Patient had some oral secretions seeping through saturated oral packing but only light serum-sanguineous in color- attending oral surgeon was aware. Heart rate on arriving to CCU was SR/ST with wide QRS complex- 12 lead EKG confirm the rhythm- MD aware. Portable chest X-ray was ordered to confirm ET tube placement. No oral care was completed/provided other than cleaning patients lips due to packing placed in OR - MD aware. After about 40 min patient started to wake up and was able to respond appropriately to yes/no questions. Patient indicated having some discomfort and anxiety at the time she was placed on Propofol and Fentanyl drips. Patient became hypertensive with SBP 160-170S and MAP [id number] with MD and treated anxiety/pain with increasing in pain/sedation IV medications- patient was able to relax and hypertension gradually resolved- please refer to CCU flow sheet for vitals and drip titration. Patient was started on IV insulin drip for elevated blood glucose- please see CCU low sheet. Patient was transferred today to [facility] place of her original oral surgery-. Patient was stable at the time of transfer. Report was called to receiving hospital RN prior to transfer. Patient left at 1345 today.
--- NOTE | 2017-06-24 19:19 | PCM.HPMED ---
Subjective Date of Service Jun 24, 2017 Primary Provider: Admitting Physician: Luis Ames MD Primary Care Physician: Annie Baldwin MD Attending Physician: Luis Ames MD Admit Status: Direct Admit, Admit to Yellow Team Chief Complaint: 46-year-old woman with recent resection of a lingual mass presents with acute recurrent postoperative bleeding. History of Present Illness: The patient is intubated and sedated. History is available through her who is at bedside. The patient has a 2 month history of dyspnea, worse at bedtime leading to fear of falling asleep. She was subsequently found to have tonsillar mass, biopsied then resected at [facility] approximately 3 days prior to admission in the care of Dr. Keenan Palacios. She experienced new onset left-sided neck pain 1 day prior to admission. On the morning admission she awakened early in the morning with profuse hemorrhage. She was taken to the operating room at [facility] urgently by Dr. Luis Ames. Details per operative note. She received 2 units RBC transfusion, as well as substantial crystalloid. Patient then transferred to intensive care unit, intubated and sedated with propofol and fentanyl. Post intubation chest x -ray with good tube placement. Blood pressure systolic in 190s now stable approximately 150-160. Posttransfusion Hemoglobin pending at time of transfer Review of Systems: Patient is unable to perform ROS Allergies Coded Allergies: chlorpromazine (Verified Allergy, Severe, 06/24/17) codeine (Verified Allergy, Severe, 06/24/17) morphine (Verified Allergy, Severe, 06/24/17) prochlorperazine (Verified Allergy, Severe, 06/24/17) thiethylperazine (Verified Allergy, Severe, 06/24/17) Phenothiazines (Verified Allergy, Unknown, 06/24/17) Uncoded Allergies: COMPAZINE,THORAZINE,TORCAN,BCP,EES,MS (Allergy, Unknown, 10/27/05) Macrolides (Allergy, Unknown, 10/27/05) Home Medications Atenolol 25 mg daily Allergy medications PMH #hypertension # Seasonal allergies # Obesity Family History Patient is unable to give family history Social History Hx Alcohol Use: No Hx Substance Use: No Smoking Status: Never Smoker Living Arrangement: with Family Exam Vital Signs Vital Sign - Last Date Time Temp Pulse Resp B/P Pulse Ox O2 Delivery O2 Flow Rate FiO2 06/24/17 12:25 Ventilator 06/24/17 12:25 37.5 74 16 110/65 99 30 Exam General: Intubated woman with gauze packing and ETT, no acute distress HEENT: sclerae anicteric Neck: No adenopathy, diffuse swelling Chest: clear to auscultation Cardiac: S1S2, no audible murmur Abdomen: BS normal, not distended or rigid Extremities: No pitting edema Neuro: Sedated but awakens with stimulation, cranial nerves symmetric, motor tone is symmetric normal Lab and Diagnostics Result Diagram: 06/24/17 1143 06/24/17 0645 X-Rays, CTs and MRIs Chest x-ray NAD Assessment & Plan 46-year-old woman with acute blood loss anemia due to hemorrhage from recent surgical site. # Acute hemorrhage, present on admission. Hemostasis achieved in the OR this morning by Dr. Ames with suture and cautery. Packing remains in place. No evidence of recurrent bleeding. Hemoglobin stable after 2 unit blood transfusion - Transfer to [facility] intensive care unit for the care of ENT surgeons, Dr. Martín Leavitt, accepting physician # Hypertension, acute on chronic. BP approximately 160/100 on admission to CCU. Currently receiving sedation, with expectation of reduced BP. - Follow clinically without intravenous vasoactive agents was this BP greater than 180 # Mechanical ventilation, acute. ABG assessed and vent settings adjusted. - Stable for transfer on current set of tidal volume 450, PEEP 5, FiO2 0.3 - Sedative midazolam and fentanyl DVT prophylaxis: No chemoprophylaxis due to hemorrhage VTE Mechanical Devices: Intermittant Pneumatic CD Time spent One hour spent in patient assessment and care coordination. copies to: Annie Baldwin MD, Jeffrey W MD Jun 24, 2017 19:19
== END 2017-06-24 13:40 | disposition short-term general hospital (02) | DRG 920 ==
LOC: SED 06:40 → ORA 07:44 → CCU 08:56
PROVIDERS: ADMIT Otolaryngology; ATTEND Otolaryngology
PROC: 5A1935Z Respiratory Ventilation, Less than 24 Consecutive Hours (ICD-10-PCS; 2017-06-24)
PROC: 4A033R1 Measurement of Arterial Saturation, Peripheral, Percutaneous Approach (ICD-10-PCS; 2017-06-24)
PROC: 30233N1 Transfusion of Nonautologous Red Blood Cells into Peripheral Vein, Percutaneous Approach (ICD-10-PCS; 2017-06-24)
PROC: 0BH17EZ Insertion of Endotracheal Airway into Trachea, Via Natural or Artificial Opening (ICD-10-PCS; principal; 2017-06-24 08:00)
DX: K91.840 Postprocedural hemorrhage of a digestive system organ or structure following a digestive system procedure (principal); D62 Acute posthemorrhagic anemia; I10 Essential (primary) hypertension